=== PATIENT | female | born 1965 | race African-American/Black ===

== ENCOUNTER 2020-01-15 00:18 | Outpatient (CLI) | payer OTHER, SELFPAY ==
[2020-01-15 19:29] LABS: SARS-CoV-2 RNA PCR Negative
== END 2020-01-15 00:19 | disposition home or self-care (01) ==
LOC: ANHCOVIDDT 00:19
PROVIDERS: PCP Family Medicine Sports Medicine; Visit Provider Internal Medicine Gastroenterology
DX: Z01.812 Encounter for preprocedural laboratory examination (principal); Z20.828 Contact with and (suspected) exposure to other viral communicable diseases
CPT/HCPCS: 87635; C9803; U0003

== ENCOUNTER 2020-01-18 01:07 | Day surgery (SDC) | payer OTHER, SELFPAY ==
[2020-01-06 13:23] VITALS: BMI 32.8
[2020-01-18 07:15] VITALS: BP 133/80; PULSE 66; RESP 20; TEMP 36; O2SAT 100
[2020-01-18] MEDS: LACTATED RINGERS 1,000 ML 150 ML IV CONT (07:26)
--- NOTE | 2020-01-18 07:49 | P.PNAN_ITS ---
Anes - Initial Pre Proc Eval Procedure: Operation Date: 01/18/20 08:30 Proposed Procedures p Screening Colonoscopy - Tristin Perez MD Date/Time: 01/18/20 07:49 Surgeon: Tristin Perez MD Pre Op Diagnosis: neoplasm screening Patient Data Age: 54 Gender: F Height: 5 ft 7 in Weight: 92.2 kg Last Vital Signs Temp 96.8 F L 01/18/20 07:15 Pulse 66 01/18/20 07:15 Resp 20 01/18/20 07:15 BP 133/80 01/18/20 07:15 Pulse Ox 100 01/18/20 07:15 Allergies Allergy/AdvReac Type Severity Reaction Status Date / Time No Known Allergies Allergy Verified 01/18/20 07:14 Home Medications Medication Instructions Recorded Confirmed Type ferrous sulfate [Iron (ferrous 325 mg PO DAILY 01/06/20 01/06/20 History sulfate)] [id number]-epa-fish oil [[place]-3 1 cap PO DAILY 01/06/20 01/06/20 History Fish Oil] Patient hx anesthesia problems: none Family hx anesthesia problems: none PMF Past Medical History Medical History (Updated 01/18/20 @ 07:49 by Yariel Cam MD) Hypertension Anes - Eval Final PreProcedure Day of Procedure 01/18/20 07:49 Patient weight: overweight Heart: regular rate and rhythm Lungs: clear to auscultation Airway: Mallampati scale class II Neurological: alert and oriented Last oral intake: >/= 8 hours ASA classification: II Emergent: no Anesthetic plan: proceed Anesthesia type and monitoring: general GIVS and standard monitoring Informed Consent: The patient's anesthetic plan and its attendant risks and benefits were discussed with the patient/family/POA. Questions were solicited and answers provided to the satisfaction of the patient/family/POA.
--- NOTE | 2020-01-18 08:16 | PM.HPGS ---
History of Present Illness History of Present Illness Consent: Risks, benefits, and alternatives have been discussed and questions answered. Patient agrees to proceed with procedure. Chief complaint: neoplasm screening Narrative: Hawa Chandler is a 54 year old female here for her first screening colonoscopy Review of Systems Constitutional: Constitutional: Denies headache(s) and Denies weakness Eyes: Eyes: Denies blurry vision ENT: Reports Normal hearing present, Denies headache(s) and Denies neck pain Cardiovascular: Cardiovascular: Denies chest pain and Denies dyspnea Respiratory: Respiratory: Denies dyspnea Gastrointestinal: Gastrointestinal: Reports no additional gastrointestinal complaints Genitourinary: Genitourinary: Denies dysuria Musculoskeletal: Musculoskeletal: Denies neck pain Integumentary/Breasts: Skin/Breast: Denies dry skin Neurologic: Reports Normal hearing present, Denies headache(s) and Denies weakness Psychiatric: Psychiatric: Denies anxiety Endocrine: Endocrine: Denies change in body appearance Hematologic/Lymphatic: Hematologic/Lymphatic: Denies easy bleeding Allergic/Immunologic: Allergic/Immunologic: Denies urticaria [facility] Past Medical History Medical History (Updated 01/18/20 @ 08:18 by Tristin Perez MD) Colon cancer screening Hypertension Meds Home Medications and Allergies Home Medications Medication Instructions Recorded Confirmed Type ferrous sulfate [Iron (ferrous 325 mg PO DAILY 01/06/20 01/06/20 History sulfate)] [id number]-[id number]-epa-fish oil [[place]-3 1 cap PO DAILY 01/06/20 01/06/20 History Fish Oil] Allergies Allergy/AdvReac Type Severity Reaction Status Date / Time No Known Allergies Allergy Verified 01/18/20 07:14 Vital Signs Vital Signs - 24 hr 01/18/20 07:15 Temperature 96.8 F L Pulse Rate 66 Respiratory Rate 20 Blood Pressure 133/80 Pulse Oximetry 100 Exam Const: General: comfortable and no acute distress HENMT: General nose exam: Normal nares present Eyes: General: appearance normal, both eyes and all related structures Neck: Neck: no JVD Resp: Auscultation: clear to auscultation bilaterally Cardio: Rate: regular rate Rhythm: regular rhythm GI: Inspection: non-distended GI Palp: Yes Soft to palpation Skin: General skin exam: normal color Neuro: General: gait normal Speech: normal speech Extrem: General: normal to inspection Psych: Mental Status: mental status grossly normal Assessment and Plan Assessment and plan (1) Colon cancer screening: Code(s): Z12.11 - Encounter for screening for malignant neoplasm of colon Status: Acute Assessment and Plan: will proceed with colonoscopy (2) Hypertension: Code(s): I10 - Essential (primary) hypertension Status: Acute
[2020-01-18 08:35] VITALS: BP 97/60; PULSE 70; RESP 16; O2SAT 97
[2020-01-18 08:45] VITALS: BP 112/65; PULSE 64; RESP 16; O2SAT 100
[2020-01-18 08:55] VITALS: BP 133/83; PULSE 75; RESP 16; O2SAT 100
== END 2020-01-18 09:24 | disposition home or self-care (01) ==
PROVIDERS: PCP Family Medicine Sports Medicine; Visit Provider Internal Medicine Gastroenterology
PROC: 0DJD8ZZ Inspection of Lower Intestinal Tract, Via Natural or Artificial Opening Endoscopic (ICD-10-PCS; CPT 45378; principal; 2020-01-18 08:30)
DX: Z12.11 Encounter for screening for malignant neoplasm of colon (principal); I10 Essential (primary) hypertension
CPT/HCPCS: 45378; J2704; J7120

== ENCOUNTER 2020-02-07 10:38 | Outpatient (CLI) | payer OTHER, SELFPAY ==
--- NOTE | ~2020-02-07 | MM_ITS ---
EXAMINATION: MM screening petty BI w bhupendra HISTORY: Screening mammogram TECHNIQUE: Craniocaudal and mediolateral oblique 3-D tomosynthesis images were obtained and synthetic 2-D images were generated. CAD analysis was submitted and interpreted. COMPARISON: 03/22/2014, 12/09/2012 bilateral digital screening mammogram examinations BREAST PARENCHYMAL COMPOSITION: There are scattered areas of fibroglandular density.. FINDINGS: There is no evidence of suspicious mass, calcification, or architectural distortion to sugg est malignancy in either breast. There has been no suspicious interval change. IMPRESSION: 1. No mammographic evidence of malignancy. 2. Recommend routine screening mammography in one year. BI-RADS Category 1: Negative Reviewed, dictated and finalized at location A.
== END 2020-02-07 10:39 | disposition home or self-care (01) ==
LOC: ANHIMG 10:40
PROVIDERS: PCP Family Medicine Sports Medicine; Visit Provider Family Medicine Sports Medicine
DX: Z12.31 Encounter for screening mammogram for malignant neoplasm of breast (principal)
CPT/HCPCS: 77063; 77067

== ENCOUNTER 2022-08-06 12:51 | Outpatient (CLI) | payer OTHER, SELFPAY ==
--- NOTE | 2022-08-06 13:04 | ECG_ITS ---
Measurements Intervals [place] Rate: 85 P: 51 [place]: 146 QRS: -20 QRSD: 90 T: -8 QT: 339 QTc: 404 Interpretive Statements SINUS RHYTHM DELAYED PRECORDIAL R/S TRANSITION LEFT VENTRICULAR HYPERTROPHY BORDERLINE ST-T WAVE ABNORMALITY- ANT/INF LEADS BASELINE ARTIFACT- I, II, AVR BORDERLINE ECG NO PREVIOUS ECG AVAILABLE FOR COMPARISON Electronically Signed On 08-06-2022 13:24:16 CDT by Jeffry Adair D.O.
[2022-08-06 13:41] LABS: Basophils Absolute Auto 0.1 K/mm3 (0.0-0.1); Basophils Percent Auto 0.8 % (0.2-1.2); Eosinophils Absolute Auto 0.1 K/mm3 (0-0.3); Hematocrit 44.6 % (37.0-47.0); Immature Granulocyte Absolute 0.02 K/mm3 (0.00-0.031); Immature Granulocyte Percent A 0.3 % (0-0.5); Lymphocytes Absolute Auto 2.04 K/mm3 (0.9-3.2); Lymphocytes Percent Auto 34.1 % (18.3-44.2); Mean Corpuscular HGB Conc 31.4 g/dl (32-36); Mean Corpuscular Hemoglobin 27.9 pg (26-34); Mean Corpuscular Volume 88.8 fl (80-100); Mean Platelet Volume 9.7 fl (7.4-10.4); Monocytes Absolute Auto 0.3 K/mm3 (0.1-0.6); Monocytes Percent Auto 5.3 % (2.6-8.5); Neutrophils Absolute Auto 3.4 K/mm3 (1.3-6.7); Neutrophils Percent Auto 57.5 % (45.5-73.1); Platelet Count Result 295 k/mm3 (150-375); Red Blood Count 5.02 M/mm3 (4.2-5.4); Red Cell Distribution Width 13.6 % (11.5-14.5)
[2022-08-06 13:54] LABS: Alanine Aminotransferase 21 U/L (6-35); Albumin Level 4.3 g/dL (3.5-5.1); Alkaline Phosphatase 60 U/L (38-126); Anion Gap 3 mmol/L (8-16); Aspartate Amino Transferase 21 U/L (14-36); Bilirubin,Total 0.4 mg/dL (0.2-1.3); Blood Urea Nitrogen 11 mg/dL (7-17); Calcium 9.2 mg/dL (8.4-10.2); Carbon Dioxide 31 mmol/L (22-30); Chloride 104 mmol/L (98-107); Estimated Glomerular Filt Rate > 60; Glucose 119 mg/dL (65-110); Potassium 3.9 mmol/L (3.4-5.0); Sodium 138 mmol/L (137-145)
== END 2022-08-06 12:52 | disposition home or self-care (01) ==
LOC: ANHSURGERY 12:58
PROVIDERS: PCP Family Medicine Sports Medicine; Visit Provider Obstetrics & Gynecology
DX: Z78.0 Asymptomatic menopausal state (principal); D25.9 Leiomyoma of uterus, unspecified; I10 Essential (primary) hypertension; Z01.818 Encounter for other preprocedural examination
CPT/HCPCS: 36415; 80053; 85025; 86850; 86900; 86901; 93005

== ENCOUNTER 2022-08-07 00:36 | Day surgery (SDC) | payer OTHER, SELFPAY ==
[2022-07-29 10:09] VITALS: BMI 31.1
--- NOTE | 2022-07-29 10:22 | PC.NURSE ---
Addendum entered by Pat Sandoval RN 07/29/22 13:28: FOLLOW DR. HOLLINS'S INSTRUCTIONS REGARDING ASPIRIN. Original Note: Report to the Outpatient Waiting Room, entrance under the green pavilion located off [facility], at time 9:00 on date 08/07/22. Planned Procedure Time: 11:00. Time changes happen often and if your time is changed the preop area will call you the afternoon before. - You and your visitor will be asked to self-screen and do not enter if you have any COVID symptoms. - Only one visitor is requested with a max of two and NO children visitors are allowed at this time. - The patient visitor may be requested to leave or wait in car when not with patient due to distancing restrictions. - A mask is optional within the hospital at this time. Patients may have clear liquids (water, carbonated beverages, clear teas, apple juice) until 3 hours prior to surgery (8:00) with a maximum of 20 ounces. - No food from midnight until time of surgery Take the following medications with a SIP of water the morning of surgery: AMLODIPINE DO NOT STOP ANY OF YOUR OTHER PRESCRIPTION MEDICATIONS PRIOR TO SURGERY EXCEPT THE FOLLOWING Medications to discontinue per physician: VITAMINS/SUPPLEMENTS Date to take last dose: 08/03/22 Please no make-up, nail citizen of [place], hairspray, perfume, deodorant, or body powder the day of surgery. No jewelry (including any body piercings) or valuables the day of surgery, leave them at home. Please take a shower or bath the night before, or the morning of, surgery with an antibacterial soap. Wear comfortable, loose fitting clothing. - Jewelry must be removed prior to entering the operating room. Rings and piercings that are not removed may be cut off. - The hospital will not accept responsibility for valuables. - Please leave all valuables, including medications, at home the day of surgery. If you are going home after surgery, a licensed warehouse driver must drive you home. - NO public transportation without another adult if you receive anesthesia. - We recommend that an adult stay with you for 24 hours following discharge. - We also recommend that you do not drive, make important decision, drink alcoholic beverages, or take any drugs that were not prescribed by your health care provider for at least 24 hours after your discharge time. Follow any additional instructions given to you from your surgeon. If you or anyone in your household have experienced Covid symptoms in the past week, please notify your surgeon or the nurse liaison at the phone number below for possible testing. Telephone instructions given to LUISA KYLE and asked if any additional questions and then verbalized understanding. Patient advised to call surgeon office or pre surgery nurse liaison [phone] if any additional questions.
[2022-08-07] VITALS (12 sets, daily range): BP systolic 94–145; BP diastolic 53–74; PULSE 59–88; RESP 12–21; TEMP 36.2–37.3; O2SAT 93–98
[2022-08-07] MEDS: KETOROLAC 15 MG/ML VIAL (*BKC) IV PUSH (09:21)
[2022-08-07] MEDS: ACETAMINOPHEN 500 MG TABLET 1000 MG PO (09:21)
[2022-08-07] MEDS: LACTATED RINGERS 1,000 ML 30 ML IV CONT ×2 (09:38→13:24)
[2022-08-07 09:41] LABS: Glucose Point of Care 98 mg/dl (65-105)
--- NOTE | 2022-08-07 09:48 | WPDANESEPPF ---
Anes - Initial Pre Proc Eval Procedure: Operation Date: 08/07/22 11:00 Proposed Procedures p Total Laparoscopic Hysterectomy, Bilateral Salpingectomy - Raisa Botello MD Date/Time: 08/07/22 09:48 Surgeon: Raisa Botello MD Pre Op Diagnosis: uterine leiomyoma Patient Data Age: 57 Gender: F Height: 1.71 m Weight: 91.63 kg Allergies Allergy/AdvReac Type Severity Reaction Status Date / Time No Known Allergies Allergy Verified 08/07/22 09:47 Home Medications Medication Instructions Recorded Confirmed Type omega-3s 300 ys-yqq-mgi-other 1 cap PO DAILY 01/06/20 07/29/22 History julrx1i-lfdi oil 1,000 mg capsule ([place]-3 Fish Oil) amlodipine 5 mg tablet 5 mg PO DAILY 07/29/22 07/29/22 History aspirin 81 mg chewable tablet 81 mg PO DAILY 07/29/22 07/29/22 History meloxicam 15 mg tablet 15 mg PO DAILY 07/29/22 07/29/22 History metformin 500 mg tablet 1,000 mg PO BID 07/29/22 07/29/22 History terbinafine HCl 250 mg tablet 250 mg PO DAILY 07/29/22 07/29/22 History vitamin C 500 mg-multivitamin with 1 tablet PO BID 07/29/22 07/29/22 History minerals chewable tablet (Emergen-C) Laboratory Tests 08/07/22 09:29 POC Capillary Glucose 98 mg/dl mg/dl (65-105) Patient hx anesthesia problems: none Family hx anesthesia problems: none Results Review: All pre-operative results and documents have been reviewed as part of the pre-operative evaluation. [facility] Past Medical History Medical History Colon cancer screening Hypertension Social History Social History Smoking status: Never smoker Alcohol intake: never Substance use: never Substance use type: does not use Living arrangements: with family Spiritual care concerns: No Anes - Eval Final PreProcedure Day of Procedure 08/07/22 09:48 Patient weight: obese Heart: regular rate and rhythm Lungs: clear to auscultation Airway: Mallampati scale class II Neurological: alert and oriented Last oral intake: >/= 8 hours ASA classification: III Emergent: no Anesthetic plan: proceed Anesthesia type and monitoring: general ETT and standard monitoring Results Review: All pre-operative results and documents have been reviewed as part of the pre-operative evaluation. Informed Consent: The patient's anesthetic plan and its attendant risks and benefits were discussed with the patient/family/POA. Questions were solicited and answers provided to the satisfaction of the patient/family/POA.
--- NOTE | 2022-08-07 10:30 | WPDHPUPDATE1 ---
History and Physical Update Update Date/Time: 08/07/22 10:30 History and Physical has been reviewed, including an updated exam of the patient. There are NO changes in the patient's condition. Risks, benefits, and alternatives have been discussed and questions answered. Patient agrees to proceed with procedure.
[2022-08-07] MEDS: ceFAZolin 2 GM/D5W 50 ML 2 GM/50 ML BAG IVPB (11:05)
[2022-08-07] MEDS: ceFAZolin SODIUM 1 GM VIAL (11:43)
--- NOTE | 2022-08-07 13:39 | P.OP_ITS ---
Procedure Note - Detailed Date of Procedure 08/07/22 Pre-op Diagnosis uterine leiomyoma Post-op Diagnosis Same Procedure Performed Total laparoscopic hysterectomy. bilateral salpingectomy Surgeon Raisa Botello MD Anesthesia General Findings enlarged fibroid uterus. , normal-appearing ovaries and tubes. Description of Procedure This patient was taken to the operating room. She was prepped and draped in the dorsal lithotomy position after induction of general anesthesia. The uterine manipulator and Drea cup were placed. This was done with a speculum and tenaculum. The speculum was placed. The cervix was grasped with a tenaculum. The stay sutures were placed at 3 and 9:00 a.m.. The stay sutures of 0 Vicryl were brought through the appropriately sized Drea cup. The tip of the JACQUELINE manipulator was placed in the intrauterine cavity. The cup was slid into place around the cervix and into the fornices. It was locked into place. The sutures were then wrapped around the handle and tied under tension. A 5 mm skin incision was made in the left upper quadrant the abdomen. A 5 mm trocar was inserted into the intrauterine cavity under direct visualization of the scope. Pneumoperitoneum was achieved. A left lower quadrant 11 mm incision was made with scalpel. An 11 mm trocar was inserted into the anterior abdominal cavity under direct visualization the scope. A 5 mm infraumbilical incision was made with a scalpel and a 5 mm trocar was inserted the intra-abdominal cavity under direct visualization of the scope. Bilateral ureteral lysis was performed. This was done from the pelvic brim down to the uterine artery. This was done with careful dissection using sharp and blunt dissection. The fallopian tubes were removed bilaterally. The mesosalpinx around the fallopian tubes were cauterized transected with LigaSure cautery. This was done in a bilateral fashion from the ovary to the uterine cornua. The fallopian tube was transected at the uterine cornu and amputated. The tube was taken out the left lower quadrant trocar site. In a stepwise fashion along the lateral aspects of the uterus the round ligament and broad ligaments were cauterized transected down to the level of the uterine arteries. A bladder flap was created in the bladder was moved distally to the end of the cervix and over the Drea cup. The bilateral uterine arteries were cauterized and transected. Colpotomy was then performed. In a circumferential fashion the vagina was transected using unipolar cautery. The incision was made down on the Drea cup. The uterus and cervix were taken out through the vagina. A pneumo occluder was placed in the vagina. The vaginal cuff was closed with a 0 V lock suture in a running fashion. The pelvis was irrigated with copious amounts antibiotic irrigation. The ureters were again examined and found to be intact and flowing freely under the uterine arteries into the bladder. The bladder was intact. It was examined directly. The vagina was irrigated with Betadine solution after removal of the Pneumo occ luder. The patient was taken to recovery room. She was stable condition. Sponge lap and needle counts were correct x2. Estimated Blood Loss -150.0 Urine Output -250.0 Drains Yes Packing No Pathology Yes Complications No immediate complications Condition Stable Disposition Floor
[2022-08-07 13:53] LABS: Glucose Point of Care 164 mg/dl (65-105)
[2022-08-07] MEDS: KETOROLAC 30 MG/ML VIAL (*BKC) IV PUSH (15:45)
[2022-08-07] MEDS: DEXTROSE 5%/0.45% SOD CHL 1,000 ML 125 ML IV CONT (15:45)
[2022-08-07] MEDS: HYDROcodone/acetaminophen (*CRX) 5-325 MG TABLET 1 TAB PO (18:37)
[2022-08-07] MEDS: metFORMIN HCL 500 MG TABLET 1000 MG PO (18:37)
[2022-08-07] MEDS: HYDROcodone/acetaminophen (*CRX) 10-325 MG TABLET 1 TAB PO (22:52)
[2022-08-07] MEDS: SIMETHICONE 80 MG TAB.CHEW PO (23:02)
[2022-08-08 04:40] VITALS: BP 127/74; PULSE 78; RESP 16; TEMP 37.1; O2SAT 97
[2022-08-08 07:25] VITALS: BP 138/66; PULSE 76; RESP 16; TEMP 37.4; O2SAT 98
[2022-08-08] MEDS: IBUPROFEN 600 MG TABLET PO (07:37)
[2022-08-08] MEDS: HYDROcodone/acetaminophen (*CRX) 10-325 MG TABLET 1 TAB PO (07:37)
--- NOTE | 2022-08-08 08:10 | PM.GYNPNOP ---
PHOTOGRAPH MOUNTER - A/P Postoperative Procedures: Procedures Operation Date: 08/07/22 11:00 Actual Procedure Side Surgeon p Total Laparoscopic Hysterectomy, Bilateral Salpingectomy Bilateral Raisa Botello MD Postoperative day: 1 Postoperative status: doing well Postoperative plan: see orders Time Spent With Patient Time: Total time spent is greater than 50% in coordination of care (as documented) at patient's floor/unit and/or counseling patient: Time with patient: less than 15 minutes PHOTOGRAPH MOUNTER- PN:Subj Post-Op Subjective Date/time seen: 08/08/22 08:10 Subjective: patient reports feeling better, patient has no complaints and pain is well controlled Exam Const: General: healthy appearing, comfortable and no acute distress Resp: Auscultation: clear to auscultation bilaterally, no rales, no rhonchi and no wheezes Cardio: Rate: regular rate Heart sounds: no click, no murmurs and no rubs GI: Inspection: non-distended Auscultation: normal bowel sounds Extrem: General: normal to inspection, no pedal edema and no calf tenderness PHOTOGRAPH MOUNTER - PN: Obj Data Vital Signs Vital Signs: Vital Signs - 24 hr 08/07/22 09:30 08/07/22 13:24 08/07/22 13:30 Temperature 97.1 F L 98.1 F Pulse Rate 76 61 61 Respiratory Rate 16 19 12 Blood Pressure 143/73 H 94/56 L 104/57 L Pulse Oximetry 97 95 98 Oxygen Delivery Room Air Simple Face Mask Simple Face Mask Oxygen Flow Rate 10 10 08/07/22 13:45 08/07/22 14:00 08/07/22 14:15 Temperature Pulse Rate 59 L 61 63 Respiratory Rate 20 19 21 H Blood Pressure 99/54 L 102/53 L 105/58 L Pulse Oximetry 96 95 98 Oxygen Delivery Simple Face Mask Simple Face Mask Room Air Oxygen Flow Rate 10 10 08/07/22 14:30 08/07/22 14:45 08/07/22 14:05 Temperature 97.7 F Pulse Rate 65 65 66 Respiratory Rate 19 17 16 Blood Pressure 106/57 L 113/55 L 110/57 L Pulse Oximetry 93 96 98 Oxygen Delivery Room Air Room Air Oxygen Flow Rate 08/07/22 15:45 08/07/22 21:20 08/07/22 23:03 Temperature 99.1 F 98.8 F Pulse Rate 65 88 84 Respiratory Rate 17 18 18 Blood Pressure 145/74 H 140/69 Pulse Oximetry 96 96 98 Oxygen Delivery Room Air Oxygen Flow Rate 08/08/22 04:40 08/08/22 04:40 Temperature 98.7 F Pulse Rate 78 Respiratory Rate 16 Blood Pressure 127/74 Pulse Oximetry 97 Oxygen Delivery Room Air Oxygen Flow Rate Intake/Output Intake/Output: Intake & Output 08/05/22 08/06/22 08/07/22 08/08/22 23:59 23:59 23:59 23:59 Intake Total 750 Output Total 850 Balance -100 Meds/Results Medications: Active Medications Generic Name Dose Route Start Last Admin Trade Name Freq PRN Reason Stop Dose Admin Hydrocodone Bitart/Acetaminophen 1 tab 08/07/22 14:52 08/07/22 18:37 Hydrocodone/Acetaminophen (*Crx) 5-325 Mg Tablet PO 1 tab Q3H PRN Administration Pain Rated 5 or Less Hydrocodone Bitart/Acetaminophen 1 tab 08/07/22 14:52 08/08/22 07:37 Hydrocodone/Acetaminophen (*Crx) 10-325 Mg Tablet PO 1 tab Q3H PRN Administration Pain Rated 6 or Greater Amlodipine Besylate 5 mg 08/08/22 09:00 Amlodipine Besylate 5 Mg Tablet PO DAILY KARIME Aspirin 81 mg 08/08/22 09:00 Aspirin 81 Mg Chewable Tablet PO DAILY KARIME Dextrose/Sodium Chloride 1,000 mls @ 125 mls/hr 08/07/22 14:52 08/08/22 06:39 Dextrose 5% Sodium Chloride 0.45% IV CONT Not Given .Q8H KARIME Ibuprofen 600 mg 08/07/22 14:52 08/08/22 07:37 Ibuprofen 600 Mg Tablet PO 600 mg Q6H PRN Administration Cramping Ketorolac Tromethamine 30 mg 08/07/22 14:52 08/07/22 15:45 Ketorolac 30 Mg/Ml Vial (*Bkc) IV PUSH 08/12/22 14:51 30 mg Q6H PRN Administration Pain Rated 4-6 Metformin HCl 1,000 mg 08/07/22 17:00 08/07/22 18:37 Metformin Hcl 500 Mg Tablet PO 1,000 mg BID KARIME Administration Naloxone HCl 0.1 mg 08/07/22 14:52 Naloxone Hcl 0.4 Mg/Ml Vial IV PUSH Q2M PRN Respiratory rate less than 10 Non-Formu
[2022-08-08] MEDS: amLODIPine BESYLATE 5 MG TABLET PO (08:32)
[2022-08-08] MEDS: SIMETHICONE 80 MG TAB.CHEW PO (08:32)
[2022-08-08] MEDS: metFORMIN HCL 500 MG TABLET 1000 MG PO (08:32)
[2022-08-08] MEDS: TERBINAFINE HCL 250 MG TABLET PO (08:33)
[2022-08-08] MEDS: ASPIRIN 81 MG CHEWABLE TABLET PO (08:33)
--- NOTE | 2022-08-08 09:24 | WPDANESPN ---
Anes - Prog Note Post-Op Date/Time: 08/08/22 09:24 Cardiovascular status: normal Respiratory status: normal Airway patency: baseline Mental status: baseline Post-Op hydration status: normal Vital Signs: Last Vital Signs Temp 99.4 F 08/08/22 07:25 Pulse 76 08/08/22 07:25 Resp 16 08/08/22 07:25 BP 138/66 08/08/22 07:25 Pulse Ox 98 08/08/22 07:25 O2 Del Method Room Air 08/08/22 07:45 O2 Flow Rate 10 08/07/22 14:00 Pain Score (VAS): 0 I/O: Intake & Output 08/07/22 08/08/22 08/08/22 23:59 07:59 15:59 Intake Total 500 Output Total 850 Balance -350 08/07/22 08/07/22 09:29 13:35 POC Capillary Glucose 98 164 H Post-procedural complaints: none Patient Feedback: Patient satisfied with anesthetic care.
== END 2022-08-08 10:50 | disposition home or self-care (01) ==
LOC: ANHSURGERY 08:47 → ANHOB2 14:57
PROVIDERS: PCP Family Medicine Sports Medicine; Visit Provider Obstetrics & Gynecology
PROC: 0UT9FZZ Resection of Uterus, Via Natural or Artificial Opening With Percutaneous Endoscopic Assistance (ICD-10-PCS; CPT 58571; principal; 2022-08-07 11:00)
DX: D25.0 Submucous leiomyoma of uterus (principal); D25.1 Intramural leiomyoma of uterus; D25.2 Subserosal leiomyoma of uterus; I10 Essential (primary) hypertension; E66.9 Obesity, unspecified; Z68.31 Body mass index [BMI] 31.0-31.9, adult; Z79.84 Long term (current) use of oral hypoglycemic drugs; Z79.82 Long term (current) use of aspirin
CPT/HCPCS: 58571; 82948; 88307; 99199; A9270; J0690; J1100; J1170; J1885; J2250; J2405; J2704; J3010; J7120

== ENCOUNTER 2024-08-26 10:22 | Outpatient (CLI) | payer OTHER, SELFPAY ==
--- NOTE | ~2024-08-26 | MM_ITS ---
EXAMINATION: MM screening petty BI w bhupendra HISTORY: Screening TECHNIQUE: Craniocaudal and mediolateral oblique 3-D tomosynthesis images were obtained and synthetic 2-D images were generated. CAD analysis was submitted and interpreted. COMPARISON: Comparison to multiple prior studies sequentially, with oldest reviewed study dated 02/24. BREAST PARENCHYMAL COMPOSITION: Not dense: There are scattered areas of fibroglandular density. FINDINGS: There is a new focal asymmetry lower central aspect of the right breast, middle third. The left breast is stable without evidence for malignancy. IMPRESSION: 1. New right breast asymmetry. 2. Additional mammographic views and possible breast ultrasound are recommended. BI-RADS Category 0: Incomplete: Needs additional imaging evaluation. Reviewed, dictated and finalized at location A. IMPRESSION: 1. New right breast asymmetry. 2. Additional mammographic views and possible breast ultrasound are recommended . BI-RADS Category 0: Incomplete: Needs additional imaging evaluation.
--- OUTSIDE RECORDS SUMMARY | 2024-08-26 11:11 | XMS_ITS | Data Portability ---
Author Organization [facility] [place] Address [address] [place] [address] Care Team Providers Care Pre Owned Sales Consultant Name Role Phone ODESSA DUDLEY Referring Provider ODESSA DUDLEY Primary Care Provider [phone] Assessment No assessment recorded. Plan of Treatment Reminders Order Date Submit Date Provider Last Modified By Organization Details Last Modified Time Details Appointments None recorded. Lab HbA1c (hemoglob in A1c), blood 023 023 [facility] (Lab), [address], [place], [address], 3 06:08:21 lipid panel, blood 023 023 [facility] (Lab), [address], [place], [address], 3 06:08:18 vitamin D, 25-hydrox y, total, serum 023 023 [facility] (Lab), [address], [place], [address], 3 06:08:21 CMP, serum or plasma 023 023 [facility] (Lab), [address], [place], [address], 3 06:08:19 CBC w/ auto diff 023 023 [facility] (Lab), [address], [place], [address], 3 06:08:17 TSH, serum or plasma 023 023 [facility] (Lab), [address] , [place], [address], 3 06:08:20 Referral None recorded. Procedures None recorded. Surgeries None recorded. Imaging None recorded. Medication Orders None recorded. Patient TargetsNo targets recorded. Patient InstructionsNo instructions recorded. Reason for Referral None Reported. Results Created Date Observation Date Name Description Value Unit Range Abnormal Flag Note LastModifiedBy Organization Detail LastModifiedTime 09/21/1909/20/2022 CBC W/DIF F WBC 6.3 10'3/ uL 3.6-10 .2 Not Available [facility] (Lab) [address], [place], [address], 09/21/2022 06:08:16 09/21/19 23 09/20/2022 CBC W/DIF F RBC 5.07 10'6/ uL (based on docume nted legal sex) 4.10-5 .30 Not Available [facility] (Lab) [address], [place], [address], 09/21/2022 06:08:16 09/21/19 23 09/20/2022 CBC W/DIF F HGB 13.8 g/dL (based on docume nted legal sex) 11.9-1 5.8 Not Available [facility] (Lab) [address], [place], [address], 09/21/2022 06:08:16 09/21/19 23 09/20/2022 CBC W/DIF F HCT 45.3 % (based on docume nted legal sex) 37.4-4 8.3 Not Available [facility] (Lab) [address], [place], [address], 09/21/2022 06:08:16 09/21/19 23 09/20/2022 CBC W/DIF F MCV 89.3 fL 82.0-9 9.0 Not Available [facility] (Lab) [address], [place], [address], 09/21/2022 06:08:16 09/21/19 23 09/20/2022 CBC W/DIF F MCH 27.2 pg 27.0-3 3.0 Not Available [facility] (Lab) [address], [place], [address], 09/21/2022 06:08:16 09/21/19 23 09/20/2022 CBC W/DIF F MCHC 30.5 g/dL 32.0-3 6.0 low Not Available [facility] (Lab) [address], [place], [address], 09/21/2022 06:08:16 09/21/19 23 09/20/2022 CBC W/DIF F RDW 14.2 % 11.0-1 5.0 Not Available [facility] (Lab) [address], [place], [address], 09/21/2022 06:08:16 09/21/19 23 09/20/2022 CBC W/DIF F plt 345 10'3/ uL 150-45 0 Not Available [facility] (Lab) [address], [place], [address], 09/21/2022 06:08:16 09/21/19 23 09/20/2022 CBC W/DIF F MPV 10.4 fL 9.8-12 .7 Not Available [facility] (Lab) [address], [place], [address], 09/21/2022 06:08:16 09/21/19 23 09/20/2022 CBC W/DIF F NRBC's 0.0 % 0 Not Available [facility] (Lab) [address], [place], [address], 09/21/2022 06:08:16 09/21/19 23 09/20/2022 CBC W/DIF F absolute NRBCs 0.0 10'3/ uL 0 Not Available [facility] (Lab) [address], [place], [address], 09/21/2022 06:08:16 09/21/19 23 09/20/2022 CBC W/DIF F neutrophils 48.0 % 37.0-7 2.0 Not Available [facility] (Lab) [address], [place], [address], 09/21/2022 06:08:16 09/21/19 23 09/20/2022 CBC W/DIF F lymphocytes 41.6 % 16.0-4 8.0 Not Available [facility] (Lab) [address], [place], [address], 09/21/2022 06:08:16 09/21/19 23 09/20/2022 CBC W/DIF F monocytes 6.7 % 4.0-14 .0 Not Available [facility] (Lab) [address], [place], [address], 09/21/2022 06:08:16 09/21/19 23 09/20/2022 CBC W/DIF F eosinophils 2.4 % 0.0-9. 0 Not Available [facility] (Lab) [address], [place], [address], 09/21/2022 06:08:16 09/21/19 23 09/20/2022 CBC W/DIF F basophils 1.0 % 0.0-2. 0 Not Available [facility] (Lab) [address], [place], [address], 09/21/2022 06:08:16 09/21/19 23 09/20/2022 CBC W/DIF F immature granulocytes 0.3 % no define d refere nce range Not Available [facility] (Lab) [address], [place], [address], 09/21/2022 06:08:16 09/21/19 23 09/20/2022 CBC W/DIF F absolute neutrophils 3.0 10'3/ uL 1.1-6. 0 Not Available [facility] (Lab) [address] [facility], [place], [address], 09/21/2022 06:08:16 09/21/19 23 09/20/2022 CBC W/DIF F absolute lymphocytes 2.6 10'3/ uL 0.7-3. 4 Not Available [facility] (Lab) [address] [facility], [place], [address], 09/21/2022 06:08:16 09/21/19 23 09/20/2022 CBC W/DIF F absolute monocytes 0.4 10'3/ uL 0.3-1. 0 Not Available [facility] (Lab) [address] [facility], [place], [address], 09/21/2022 06:08:16 09/21/19 23 09/20/2022 CBC W/DIF F absolute eosinophils 0.2 10'3/ uL 0.0-0. 6 Not Available [facility] (Lab) [address] [facility], [place], [address], 09/21/2022 06:08:16 09/21/19 23 09/20/2022 CBC W/DIF F absolute basophils 0.1 10'3/ uL 0.0-0. 1 Not Available [facility] (Lab) [address] [facility], [place], [address], 09/21/2022 06:08:16 09/21/19 23 09/20/2022 CBC W/DIF F absolute immature granulocytes 0.0 10'3/ uL 0.00-0 .10 2022 4:05 AM: P indic ates parti al resul ts on a panel have been relea sed. Addit ional resul ts will follo w. 2022 4:05 AM: This resul t has been final verif ied. No addit ional or cooley ed resul ts are expec gia. Not Available [facility] (Lab) [address] [facility], [place], [address], 09/21/2022 06:08:16 09/21/19 23 09/20/2022 LIPID PANEL ,AMA (LDL- CALC) total cholesterol 223 mg/dL 0-199 high Not Available [facility] (Lab) [address] [facility], [place], [address], 09/21/2022 06:08:18 09/21/19 23 09/20/2022 LIPID PANEL ,AMA (LDL- CALC) triglyceride s 85 mg/dL 0.00-1 50.00 NCEP Refer ence Value s for Trigl yceri rudy: Brii l: <150 mg/dL Borde rline High: 150 - 199 mg/dL High: 200 - 499 mg/dL Very High: >/= 500 mg/dL Not Available [facility] (Lab) [address] [place], [address], 09/21/2022 06:08:18 09/21/1909/20/2022 LIPID PANEL ,AMA (LDL- CALC) HDL cholesterol 77 mg/dL >40 Not Available [facility] (Lab) [address] [place], [address], 09/21/2022 06:08:18 09/21/19 23 09/20/2022 LIPID PANEL ,AMA (LDL- CALC) LDL cholesterol 128 mg/dL 0-99 high Cutof f value s recom ana maria d by the Natcarole nal Kamala stero l Educa tion Progr am: SPENCER ABLE: Kamala stero l <200 mg/dL LDL <100 mg/dL BORDE RLINE : Kamala stero l 200-2 39 mg/dL LDL 101-1 59 mg/dL HIGHE R RISK: Kamala stero l >240 mg/dL LDL >160 mg/dL , HDL <40 mg/dL Not Available [facility] (Lab) [address] [place], [address], 09/21/2022 06:08:18 09/21/1909/20/2022 LIPID PANEL ,AMA (LDL- CALC) non-HDL cholesterol 146 mg/dL no refere nce range A reaso nable goal for non-H DL kamala stero l is one that is 30 mg/dL highe r than the LDL kamala stero l goal. Not Available [facility] (Lab) [address], [place], [address], 09/21/2022 06:08:18 09/21/1909/20/2022 LIPID PANEL ,AMA (LDL- CALC) chol/HDL ratio 2.9 . 0.0-5. 0 On September 17, 2022, RUST labor atori rubens cooley ed the equat ion for calcu latin g estim ated low-d ensit y lipop rotei n-cho leste rol (LDL- C) from the Fried yamileth equat ion to the Ashley n/Hop kins equat ion. This new equat ion is only valid for lipid panel s with trigl yceri rudy < 400 mg/dL . Gweni es have alexon stratyrese ed that this new equat ion will impro ve the accur acy of LDL-C , espec ially in scena jones when LDL-C reva ntrat ions are relat ively low (< 100 mg/dL ), trigl yceri rudy are eleva gia, or patie nt is non-f astin g. Refer ences : - Ashley soriano, Charly Perez, Rafa Koehler , [facility] wicho BRajeev العلي, Jesse Llanes, Jesse villa, Ed Hardwick [facility] , and Foster Ocampo . 2013. Comp ariso n of a Novel Metho d vs the Fried yamileth Equat ion for Estim ating Low-D ensit y Lipop rotei n Kamala stero l Level s from the Stand marla Lipid Profi le. SHWETA: The Journ al of the Ameri can Medic al Assoc iatio n 310 (19): 2060- . - Cilf camejo V, Eilzabeth Ta, Los camejo A, Mary Ellen Gallego, Jose Carlos silverio R, Arnel Silverio, Ronen sanchez RS, Terrence SR, Ashley n SS. Fast ing Versu s Nonfa sting and Low-D ensit y Lipop rotei n Kamala stero l Accur acy. Circu latio n. 2017May 27;137 (1):1 0-19. Not Available [facility] (Lab) [address] [facility], [place], [address], 09/21/2022 06:08:18 09/21/19 23 09/20/2022 CMP(C OMPRE HENSI VE METAB OLIC PANEL ) sodium 141 mmol/ L 133-14 6 Not Available [facility] (Lab) [address] [facility], [place], [address], 09/21/2022 06:08:19 09/21/19 23 09/20/2022 CMP(C OMPRE HENSI VE METAB OLIC PANEL ) potassium 4.0 mmol/ L 3.5-5. 1 Not Available [facility] (Lab) [address] [facility], [place], [address], 09/21/2022 06:08:19 09/21/19 23 09/20/2022 CMP(C OMPRE HENSI VE METAB OLIC PANEL ) chloride 104 mmol/ L 98-107 Not Available [facility] (Lab) [address] [facility], [place], [address], 09/21/2022 06:08:19 09/21/19 23 09/20/2022 CMP(C OMPRE HENSI VE METAB OLIC PANEL ) carbon dioxide 29 mmol/ L 21-31 Not Available [facility] (Lab) [address] [facility], [place], [address], 09/21/2022 06:08:19 09/21/19 23 09/20/2022 CMP(C OMPRE HENSI VE METAB OLIC PANEL ) anion gap 8 mmol/ L 4-13 Not Available [facility] (Lab) [address] [place], [address], 09/21/2022 06:08:19 09/21/19 23 09/20/2022 CMP(C OMPRE HENSI VE METAB OLIC PANEL ) blood urea nitrogen 11 mg/dL 7-25 Not Available [facility] (Lab) [address], [place], [address], 09/21/2022 06:08:19 09/21/19 23 09/20/2022 CMP(C OMPRE HENSI VE METAB OLIC PANEL ) creatinine 0.65 mg/dL 0.60-1 .30 Not Available [facility] (Lab) [address], [place], [address], 09/21/2022 06:08:19 09/21/19 23 09/20/2022 CMP(C OMPRE HENSI VE METAB OLIC PANEL ) egfrcr (CKD-epi 2020) >90 mL/mi n/1.7 3_m2 >=60 Not Available [facility] (Lab) [address], [place], [address], 09/21/2022 06:08:19 09/21/19 23 09/20/2022 CMP(C OMPRE HENSI VE METAB OLIC PANEL ) calcium 9.5 mg/dL 8.3-10 .5 Not Available [facility] (Lab) [address], [place], [address], 09/21/2022 06:08:19 09/21/19 23 09/20/2022 CMP(C OMPRE HENSI VE METAB OLIC PANEL ) glucose 102 mg/dL 70-100 high Not Available [facility] (Lab) [address], [place], [address], 09/21/2022 06:08:19 09/21/19 23 09/20/2022 CMP(C OMPRE HENSI VE METAB OLIC PANEL ) protein, total 6.8 g/dL 6.4-8. 3 Not Available [facility] (Lab) [address], [place], [address], 09/21/2022 06:08:19 09/21/19 23 09/20/2022 CMP(C OMPRE HENSI VE METAB OLIC PANEL ) albumin 4.2 g/dL 3.5-5. 0 Not Available [facility] (Lab) [address], [place], [address], 09/21/2022 06:08:19 09/21/19 23 09/20/2022 CMP(C OMPRE HENSI VE METAB OLIC PANEL ) ALT 12 units /L 9-43 Not Available [facility] (Lab) [address], [place], [address], 09/21/2022 06:08:19 09/21/19 23 09/20/2022 CMP(C OMPRE HENSI VE METAB OLIC PANEL ) alkaline phosphatase 67 units /L 34-104 Not Available [facility] (Lab) [address], [place], [address], 09/21/2022 06:08:19 09/21/19 23 09/20/2022 CMP(C OMPRE HENSI VE METAB OLIC PANEL ) AST 13 units /L 13-39 Not Available [facility] (Lab) [address], [place], [address], 09/21/2022 06:08:19 09/21/19 23 09/20/2022 CMP(C OMPRE HENSI VE METAB OLIC PANEL ) bilirubin, total 0.3 mg/dL 0.2-1. 2 Not Available [facility] (Lab) [address], [place], [address], 09/21/2022 06:08:19 09/21/19 23 09/20/2022 TSH, REFLE X FREE T4 TSH 2.34 uIU/m L 0.30-5 .33 Not Available [facility] (Lab) [address], [place], [address], 09/21/2022 06:08:20 09/21/19 23 09/20/2022 HEMOG LOBIN A1C hemoglobin A1C 5.8 % 0-5.6 high The Ameri can Diabe summer Assoc iatio n recom mends that a prima ry goal of thera py sepideh holly be a HBA1C of < 7% and that physi cians shoul d reeva luate the treat ment regim en in patie nts with HBA1C value s consi stent ly > 8%. <5.7% Brii l 5.7 - 6.4% Incre ased risk for diabe summer >=6.5 % Diagn ostic of diabe summer <7.0% Goal of thera py >8.0% Actio n sugge sted Not Available [facility] (Lab) [address] [facility], [place], [address], 09/21/2022 06:08:20 09/21/19 23 09/20/2022 VITAM IN D, 25-OH (TOTA L D2/D3 ) vitamin D, 25-hydroxy, total 48.4 NG/mL 30.0-1 00.0 Sugge stive of Defic iency : <20 ng/mL Sugge stive of Insuf ficie ncy: 20-29 ng/mL Sugge stive of Suffi cienc y: 30-10 0 ng/mL Sugge stive of Toxic ity: >150 ng/mL Not Available [facility] (Lab) [address] [facility], [place], [address], 09/21/2022 06:08:21 Result Notes None recorded. Procedures Surgical History Date Name Laterality Status Provider Name and Address Organization Details Recorded Time 08/08/19 23 ROBOTIC ASSISTED HYSTERECTOMY W/BILATERAL SALPINGO-OOPHORE CTOMY (SURG) completed Debo Hendrickson [facility] 08/08/2022 10:39:11 12/13/19 20 Date of Last Mammogram completed [facility] 06/25/2022 12:11:54 12/10/19 19 Date of Last Pap Smear completed [facility] 06/25/2022 12:11:54 05/26/[address] [facility] 06/25/2022 12:24:33 Endometrial Ablation completed Shirley Martinez [facility] 10/03/2022 11:06:09 Imaging Results None recorded. Procedure Notes None recorded. Medical Equipment None Reported. Allergies No known drug allergies Medications Name Sig Start Date Stop Date Status Note LastModified by Organization Details LastModified Time metformin 500 mg tablet TAKE 2 TABLETS BY MOUTH TWICE A DAY active Not Available Not Available No t Available meloxicam 15 mg tablet TAKE 1 TABLET BY MOUTH EVERY DAY active Not Available Not Available No t Available amlodipine 5 mg tablet TAKE 1 TABLET BY MOUTH EVERY DAY 09/20 completed Not Available Not Available Not Available terbinafine HCl 250 mg tablet TAKE 1 TABLET BY MOUTH EVERY DAY 09/20 completed Not Available Not Available Not Available glimepiride 4 mg tablet TAKE 1 TABLET BY MOUTH EVERYDAY AT BEDTIME 09/20 completed Not Available Not Available Not Available estradiol 2 mg tablet Take 1 tablet every day by oral route. 09/20 completed Not Available Not Available Not Available aliskiren 150 mg-amlodipi ne 5 mg tablet active Not Available Not Available Not Available alogliptin 12.5 mg-metformi n 500 mg tablet 10/03 completed Not Available Not Available Not Available Rybelsus 7 mg tablet TAKE 1 TABLET BY MOUTH EVERY DAY 09/20 completed Not Available Not Available Not Available ID NOW COVID-19 Test Kit TEST DIRECTED TODAY 09/20 completed Not Available Not Available Not Available Flowflex COVID-19 Antigen Home Test kit FOLLOW INSTRUCTI ONS INCLUDED WITH THE PACKAGE. 09/20 completed Not Available Not Available Not Available Vitals Date Recorded Body height Body mass index (BMI) Body weight Systolic blood pressure Diastolic blood pressure Provider Name and Address Organization Details Last Updated DateTime 08/01/2022 171.45 cm 32.1 kg/m2 63397.21 g 149 mm[Hg] 87 mm[Hg] Roxy Radha [facility] 12:29:47 Date Recorded Body height Body mass index (BMI) Body weight Systolic blood pressure Diastolic blood pressure Provider Name and Address Organization Details Last Updated DateTime 08/14/2022 171.45 cm 31.9 kg/m2 35081.62 g 136 mm[Hg] 78 mm[Hg] Roxy Garcia [facility] 3 14:22:32 Date Recorded Body height Body mass index (BMI) Body weight Systolic blood pressure Diastolic blood pressure Systolic blood pressure Diastolic blood pressure Provider Name and Address Organization Details Last Updated DateTime 3 171.45 cm 31.6 kg/m2 62240.4 4 g 153 mm[Hg] 107 mm[Hg] 140 mm[Hg] 80 mm[Hg] Jessenia Wilcox [facility] 3 12:35:51 Date Recorded Body height Body mass index (BMI) Body weight Systolic blood pressure Diastolic blood pressure Provider Name and Address Organization Details Last Updated DateTime 10/03/2022 171.45 cm 31.7 kg/m2 68091.87 g 138 mm[Hg] 80 mm[Hg] Shirley Martinez [facility] 3 11:27:26 Social History Question Answer Notes LastModified by Organizat ion Details LastModified Time What Is Your Level Of Alcohol Consumption? None Information not available 06/25/2022 How Many Years Have You Consumed Alcohol? 0 Information not available 06/25/2022 Are You Blind Or Do You Have Difficulty Seeing? No Information not available 06/25/2022 What Is Your Level Of Caffeine Consumption? Occasional Information not available 06/25/2022 How Much Tobacco Do You Chew? None [email or web address] Information not available 10/03/2022 In The 14 Days Before Symptom Onset, Have You Had Close Contact With A Laboratory-confir med COVID-19 While That Case Was Ill? No Information not available 06/25/2022 In The 14 Days Before Symptom Onset, Have You Had Close Contact With A Person Who Is Under Investigation For COVID-19 While That Person Was Ill? No Information not available 06/25/2022 Have You Been To An Area Known To Be High Risk For COVID-19? No Information not available 06/25/2022 Are You Deaf Or Do You Have Serious Difficulty Hearing? No Information not available 06/25/2022 What Type Of Diet Are You Following? REGULAR Information not available 06/25/2022 What Is The Highest Grade Or Level Of School You Have Completed Or The Highest Degree You Have Received? 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 Yes Information not available 06/25/2022 Do You Use Protection During Sex? No Information not available 06/25/2022 Do You Use Your Seat Belt Or Car Seat Routinely? Yes Information not available 06/25/2022 Do You Have Smoke And Carbon Monoxide Detectors In Your Home? Yes Information not available 06/25/2022 At What Age Did You Start Smoking Tobacco? 0 Information not available 06/25/2022 How Much Tobacco Do You Smoke? No Information not available 06/25/2022 Do You Feel Stressed (tense, Restless, Nervous, Or Anxious, Or Unable To Sleep At Night)? [id number] Information not available 06/25/2022 Do You Use Any Illicit Or Recreational Drugs? No Information not available 06/25/2022 Do You Use Sunscreen Routinely? No Information not available 06/25/2022 How Many Years Have You Smoked Tobacco? 0 Information not available 06/25/2022 Have You Used IV Drugs? No Information not available 06/25/2022 Sex: Unknown Functional Status Question Answer Note LastModified by Organizat ion Details LastModified Time Are you able to walk? [email or web address] Information not available 06/25/2022 What is your exercise level? Occasional Information not available 06/25/2022 Mental Status None recorded. Family History Relationship Description Onset Age of this Age Resolved Age Notes LastModified by Organization Details LastModified Time Maternal Uncle Diabetes mellitus Not available 2022 12:11:44 Maternal Aunt Diabetes mellitus Not available 2022 12:11:44 Mother Heart disease Not available 2022 12:11:44 Mother Diabetes mellitus [email or web address] Not available 2022 12:11:44 Sister Heart disease [email or web address] Not available 2022 12:11:44 Sister Diabetes mellitus Not available 2022 12:11:44 Medical History Condition Response Diabetes Y Gynecological History Statement/Question Response Date of Last Mammogram 12/13/2019 Date of LMP 05/25/2020 On BCP's at Conception? N N Was last menstrual period normal Y STIs/STDs N HPV Vaccine N Duration of Flow (days) 7 Current Control Method Ablation Age at First Child 24 Frequency of Cycle (Q days) 30 Sexually Active? Y Age of first menstrual cycle 15 Date of Last Pap Smear 12/09/2018 Sexual Problems? Y LMP Approximate N Obstetrics History GPAL:G 3 P 2 0 1 2 Type Value Full Term 2 Induced 1 Living 2 Total 3 Past Encounters Encounter ID Performer Location Encounter Start Date Encounter Closed Date Diagnosis/Indication Diagnosis SNOMED-CT Code Diagnosis ICD10 Code Diagnosis Note [id number] Julio Cesar Botello MD [place] [address] [address] 06/25/2022 11:46:28 06/26/2022 10:59:18 Dyspareunia [id number] N94.10 Pain in pelvis 01225450 R10.2 patient is a 57-year-ol d female with fibroid uterus. She has a painful fibroid uterus. She has pain with intercours e. She has pressure in her rectum. Patient has retention of stool possibly associated with these fibroids the project into the posterior cul-de-sac . Pain with intercours e affecting her relationsh ip with her significan t other. She has intense cramping pain. Patient would like definitive surgical treatment. Medical treatment will not help this patient. She is postmenopa usal. We agreed to perform laparoscop ic or robotic assisted hysterecto my. This will be with bilateral salpingo-o ophorectom y. I described the procedure the patient in detail. I described laparoscop ic and robotic approaches . We spent more than 40 minutes face-to-fa ce. More than 50% was counseling we made a decision to perform major surgery. [id number] Martha Wilkinson [place] [address],[place] [address] 06/25/2022 14:00:18 06/25/2022 15:10:22 Uterine leiomyoma [id number] D25.9 [id number] Julio Cesar Botello MD [place] [address],[place] [address] 08/01/2022 12:10:59 08/02/2022 10:38:46 Dyspareunia [id number] N94.10 Pain in pelvis [id number] R10.2 this patient is a 57-year-ol d female with dyspareuni a and pelvic pain. We agreed to perform total laparoscop ic hysterecto my bilateral salpingo-o ophorectom y. She understand s risks, benefits, and alternativ es. She has completed the informed consent process is ready to proceed. Uterine leiomyoma [id number] 05 D25.9 [id number] Julio Cesar Botello MD [place] [address],[place] [address] 08/14/2022 14:11:36 08/14/2022 17:03:47 Postoperative care [id number] Z48.89 this patient is a 57-year-ol d female presents for follow-up from hysterecto my. She is postop 1 week from a total laparoscop ic hysterecto my. She has no complaints . She is recovering normally. Her incisions are clean dry and intact. She had very little pain. She used no narcotic pain medication . [id number] ELIUD German [place] [address],[place] [address] 09/20/2022 12:12:37 09/20/2022 13:29:18 Obesity [id number] E66.9 Today a detailed history was obtained. We talked about her weight loss struggles and success.we discussed her diet. Recommende d eating breakfast daily, getting protein in the morning. We discussed protein intake, healthy eating choices, portion sizes, limiting sugary drinks (currently drinks sweet tea and lemonade). She is going to schedule with the care transition manager for consultDis cussed exercise recommenda tions - 150 minutes of exercise a week. We discussed walking, biking, swimming, jerome, yoga, pilates, resistance bands, strength exercises. Fasting labs orderedwe briefly discussed obesity medication options. She has type 2 diabetes and would be a candidate for injectable medication s-schedule with care transition manager- have fasting labs done-incor porate exercise-c heck insurance coverage-R TC for f/u in about 2 weeks Time spent in visit is a total of 40 mins with at least 50% of visit consisting of counseling and review of plan of care. Type 2 yogesh betes mellitus [id number] E11.9 [id number] ELIUD German [place] [address] [address] 10/03/2022 10:58:09 10/03/2022 13:13:52 Obesity [id number] E66.9 we reviewed her updated labs-hemog lobin A1C 5.8, total and LDL cholestero l elevateddi scussed exercise recommenda tions, start incorporat ing more intentiona l exercise, strength trainingre viewed healthy eating, protein intake - care transition manager appointmen t is scheduled we reviewed obesity medication options moving forwardrev iewed R/B/A/SE/c ost/contra indication s of each methodshe denies any personal or fam hx of thyroid cancer discussed ozempic (semagluti de) for management of obesity/ty pe 2 diabetesre viewed R/B/A/SE/c ontraindic ationsshe would like to consider her options and discuss this with her PCP - she will reach out to the office once she has decided if she would like to proceed with this. Time spent in visit is a total of 40 mins with at least 50% of visit consisting of counseling and review of plan of care. Type 2 yogesh betes mellitus [id number] E11.9 Health Concerns Section Related Observation LastModified by Organization Detai ls LastModified Time None Recorded Concern Status LastModified by Organization Details LastModified Time None Recorded Advance Directives Directive None Recorded Payers Encounter Date Sequence Insurance Name Policy Number Policy Pavon Covered Member ID Pavon Member ID Guarantor Name 08/01/2022 1 [facility] [employer] [facility] [id number] Fabio Chandler [id number] JOSE Chandler 08/14/2022 1 [facility] [employer] [id number] Fabio Chandler [id number] OI aHwa Chandler 09/20/2022 1 [facility] [id number] Fabio Chandler [id number] OI Hawa Chandler 10/03/2022 1 [facility] [id number] Fabio Chandler [id number] OI Hawa Chandler Notes Date Note Type Note Provider Name and Address Organization Details Recorded Time 08/01/2022 text/html this patient is a 57-year-old female with pelvic pain and dyspareunia. She has fibroid uterus. We agreed perform total laparoscopic hysterectomy bilateral salpingo-oophorectomy . The patient understands the procedure. The procedure was described to the patient in great detail. the patient also understands the risks. The risks were also explained in detail. She understands that injuries May occur during surgery. She understands these injuries can result in hospitalization, more surgery, and severe illness. She understands there is risk of hemorrhage and infection. Julio Cesar Botello MD [address], [place], [address], [facility] 08/01/2022 23:19:01 08/14/2022 text/html this patient is a 57-year-old female presents for follow-up from hysterectomy. She is postop 1 week from a total laparoscopic hysterectomy. She has no complaints. She is recovering normally. Her incisions are clean dry and intact. She had very little pain. She used no narcotic pain medication. Julio Cesar Botello MD [address], [place], [address], [facility] 08/14/2022 16:18:41 09/20/2022 text/html 57yopresents for weight management consultcurrently at her highest weight, 205 lbs BMI 31.6weight gain has been associated with restaurant shift supervisor work and medication changesshe normally eats breakfast, eats about 2 times per day, drinks water/sweet tea/lemonadeeats at night often due to restaurant shift supervisor workno current exercisesleeps 6-8 hours a night, no snoring, feels rested sometimes Past Medical Hx: High blood pressure, Type 2 DiabetesPast surgical hx : hysterectomy, 6 weeks agoMedications: metformin, amlodipine, meloxicamshe was previously on rybelsus, had success with this but it became too expensivenever smoker, no alcoholFam hx : obesity, HTN ELIUD German [address], [place], [address], [facility] 09/20/2022 13:07:24 10/03/2022 text/html 57yopresents for weight management f/ushe has an appointment with the care transition manager scheduledno current exercise yet, has trouble finding time with current work schedule (works long hours and night shifts) ELIUD German [address], [place], [address], [facility] 10/03/2022 12:28:27 OBGyn Episode Ob Episode Information Episode Created Date Number of Fetuses Patient Bloodtype Patient rh Status Prepregnancy Weight lbs Domestic Partner Domestic Partner Phone Father Name Ophthalmic Aide Status 06/25/19 23 1 CLOSED Fetus Data First Name Last Name Admitted to NICU Weight (g) Sex Living Outcome Pediatric Complications Fetus ID Race Codes Race Delivery Type , Induced [id number] Noel Calculation Initial Noel Date Initial Exam Date Initial Exam Provider Initial Ultrasound Date Last Menstrual Period Date Ultra Sound Weeks Gestation 0 Eighteen To Twenty Week Noel Update Ultra Sound Date Fundal Height At Umbil Quickening Date Ultra Sound Latest Weeks Gestation Final Noel Confirmed By Final Noel Confirmed Date Final Noel Date Ultra Sound Latest Days Gestation 0 0 Menstrual History Last Menstrual Date Menses Monthly On Bcp Conception Prior Menses Frequency Hcg Plus Date Menarche Onset Age Delivery Information Delivery Date Delivery Type Labor Anesthesia Weeks Gestation Incision Type Labor Labor Length Hrs Delivered By Post Complications Tubal Sterilization Discharge Date Comments 2 Discharge Information Feeding Method Contraceptive Method Maternal HG B and HCT Levels Ob Episode Information Episode Created Date Number of Fetuses Patient Bloodtype Patient rh Status Prepregnancy Weight lbs Domestic Partner Domestic Partner Phone Father Name Ophthalmic Aide Status 06/25/19 23 1 CLOSED Fetus Data First Name Last Name Admitted to NICU Weight (g) Sex Living Outcome Pediatric Complications Fetus ID Race Codes Race Delivery Type 2721.55 2 M Prematur [place] [id number] Vaginal Delivery Noel Calculation Initial Noel Date Initial Exam Date Initial Exam Provider Initial Ultrasound Date Last Menstrual Period Date Ultra Sound Weeks Gestation 0 Eighteen To Twenty Week Noel Update Ultra Sound Date Fundal Height At Umbil Quickening Date Ultra Sound Latest Weeks Gestation Final Noel Confirmed By Final Noel Confirmed Date Final Noel Date Ultra Sound Latest Days Gestation 0 0 Menstrual History Last Menstrual Date Menses Monthly On Bcp Conception Prior Menses Frequency Hcg Plus Date Menarche Onset Age Delivery Information Delivery Date Delivery Type Labor Anesthesia Weeks Gestation Incision Type Labor Labor Length Hrs Delivered By Post Complications Tubal Sterilization Discharge Date Comments 1 35 Radha a n Discharge Information Feeding Method Contraceptive Method Maternal HG B and HCT Levels Ob Episode Information Episode Created Date Number of Fetuses Patient Bloodtype Patient rh Status Prepregnancy Weight lbs Domestic Partner Domestic Partner Phone Father Name Ophthalmic Aide Status 06/25/19 23 1 CLOSED Fetus Data First Name Last Name Admitted to NICU Weight (g) Sex Living Outcome Pediatric Complications Fetus ID Race Codes Race Delivery Type 3231.84 3 F Prematur e [id number] Vaginal Delivery Noel Calculation Initial Noel Date Initial Exam Date Initial Exam Provider Initial Ultrasound Date Last Menstrual Period Date Ultra Sound Weeks Gestation 0 Eighteen To Twenty Week Noel Update Ultra Sound Date Fundal Height At Umbil Quickening Date Ultra Sound Latest Weeks Gestation Final Noel Confirmed By Final Noel Confirmed Date Final Noel Date Ultra Sound Latest Days Gestation 0 0 Menstrual History Last Menstrual Date Menses Monthly On Bcp Conception Prior Menses Frequency Hcg Plus Date Menarche Onset Age Delivery Information Delivery Date Delivery Type Labor Anesthesia Weeks Gestation Incision Type Labor Labor Length Hrs Delivered By Post Complications Tubal Sterilization Discharge Date Comments 9 35 Emma Discharge Information Feeding Method Contraceptive Method Maternal HG B and HCT Levels
--- OUTSIDE RECORDS SUMMARY | 2024-08-26 11:11 | XMS_ITS ---
Author Organization Unknown Medications Medication Instructions Effective Dates (start - stop) Status metformin hydrochloride 500 MG Oral Tablet - Completed meloxicam 15 MG Oral Tablet [id number] :00:00Z - Completed amlodipine 5 MG Oral Tablet [id number] :00:00Z - Completed amlodipine 5 MG Oral Tablet [id number] :00:00Z - Completed meloxicam 15 MG Oral Tablet [id number] :00:00Z - Completed meloxicam 15 MG Oral Tablet [id number] :00:00Z - Completed diclofenac sodium 75 MG Concepción yed Release Oral Tablet - Completed amlodipine 5 MG Oral Tablet [id number] :00:00Z - Completed terbinafine 250 MG Oral Tablet 2023-12-11 T00:00:00Z - Completed amlodipine 5 MG Oral Tablet [id number] :00:00Z - Completed metformin hydrochloride 500 MG Oral Tablet - Completed metformin hydrochloride 500 MG Oral Tablet - Completed metformin hydrochloride 500 MG Oral Tablet - Completed Patient Care team information Name Category Status Period Participants - - Proposed period not known -
--- OUTSIDE RECORDS SUMMARY | 2024-08-26 11:11 | XMS_ITS | Clinical Summary ---
Author Organization [facility] [employer] Address [address] [place] [address] Care Team Providers Care Report Writer Name Role Phone Diaz Farfan MD Primary Care Provider [phone] Source Comments [facility] [employer],non-owned Affiliates and Associated Physician Practices is amultiple site organization consisting of ambulatory clinics and hospital sitesin [place], [place], [place] and [place]. This disclosure is being madepursuant to the Care Everywhere program and may not contain all information available regarding this patient. Last updated 18.[facility] [employer] Allergies No known active allergies Medications * Be aware that medications may not be up to date on this document. Alwaysverify current medications with the patient. Medication Sig Dispensed Refills Start Date End Date Status [place]-3 Fatty Acids (FISH OIL) 1200 MG CAPS Take by mouth. Active B-12 PO Take by mouth. Active IRON PO Take by mouth. Active meloxicam (MOBIC) 15 MG tablet Take 1 tablet by mouth once daily as needed with food 30 tablet 1 10/15/2017 Active Active Problems Problem Noted Date Diagnosed Date HT (hammer toe) 01/17/2010 Contracted, tendon 01/17/2010 Plantar fasciitis 12/20/2009 Family History Medical History Relation Name Comments Diabetes - Type 1 Brother Renal Disease Brother Schizophrenia Brother Cancer - Lung Maternal Aunt Diabetes - Type 2 Maternal Aunt Hypertension Maternal Aunt CAD (Coronary Artery Disease) Mother Diabetes - Type 2 Mother Hyperlipidemia Mother Hypertension Mother Diabetes - Type 2 Paternal Uncle Hypertension Paternal Uncle Diabetes - Type 2 Sister Hyperlipidemia Sister Hypertension Sister Relation Name Status Comments Brother Maternal Aunt Mother Paternal Uncle Sister Social History Tobacco Use Types Packs/Day Years Used Date Smoking Tobacco: Never Smokeless Tobacco: Never Alcohol Use Standard Drinks/Week Comments No 0 (1 standard drink = 0.6 oz pur e alcohol) Sex and Gender Information Value Date Recorded Sex Assigned at Not on file Gender Identity Not on file Sexual Orientation Not on file Last Filed Vital Signs Vital Sign Reading Time Taken Comments Blood Pressure 120/82 10/15/2017 1:10 PM CDT Pulse - - Temperature 36.8 C (98.2 F) 01/17/2010 8:06 AM CDT Respiratory Rate 18 10/15/2017 1:10 PM CDT Oxygen Saturation - - Inhaled Oxygen Concentration - - Weight 93 kg (205 lb) 10/15/2017 1:10 PM CDT Height 170.2 cm (5' 7 ) 10/15/2017 1:10 PM CDT Body Mass Index 32.11 10/15/2017 1:10 PM CDT Plan of Treatment Health Maintenance Due Date Last Done Comments COLOGUARD (AGES 45-75) - COL ON CA SCREENING 1967 COLON MONITORING 1967 COLONOSCOPY - COLON CA SCREENING 1967 CT COLONOGRAPHY - COLON CA SCREENING 1967 Colorectal Cancer Screening 1967 FIT - COLON CA SCREENING 1967 FLEX SIG - COLON CA SCREENING 1967 LIPID TESTING 1967 PAP SMEAR 1967 HIV SCREENING 1982 HEPATITIS C SCREENING 03/20/1985 DTAP/TDAP/TD VACCINES (1 - Tdap) 1986 HEPATITIS B VACCINE (1 of 3 - 19+ 3-dose series) 1986 MAMMOGRAM 10/26/2010 10/26/2008 PNEUMOCOCCAL VACCINE 50+ (1 of 1 - PCV) 2017 ZOSTER VACCINE (1 of 2) 2017 SCREENING FOR DIABETES 10/15/2017 COVID-19 VACCINE ( - 2023-2 5 season) 2024 DEPRESSION SCREENING 05/26/2024 INFLUENZA VACCINE (Season Ended) 2025 HIB VACCINE Aged Out No longer eligi ble based on patient's age to complete this topic HPV VACCINE Aged Out No longer eligi ble based on patient's age to complete this topic MENINGOCOCCAL (Group B) VACC INE SHARED DECISION-MAKING Aged Out No longer eligibl e based on patient's age to complete this topic MENINGOCOCCAL GROUPS A/C/Y/W VACCINE Aged Out No longer eligible b ased on patient's age to complete this topic PNEUMOCOCCAL VACCINE Aged Out No long er eligible based on patient's age to complete this topic Procedures Procedure Name Priority Date/Time Associated Diagnosis Comments MAMMO BILAT SCREENING Today 10/26/2008 10:50 AM CDT Other Screening Mammogram from Last 3 Months or Most Recently Relevant to Health Maintenance Results * MAMMO SCREENING DIGITAL IMAGE BILAT (10/26/2008 10:50 AM CDT) Anatomical Region Laterality Modality Breast Bilateral Other 10/26/2008 10:5 0 AM CDT Narrative 10/26/2008 1:42 PM CDT EXAMINATION- Digital screening mammogram on 10/26/2008. OUTREACH CLINICIAN- RT Jason, TREY PRIOR- This is a baseline study FINDINGS- Computer assisted detection was utilized. The tissue density is dense. There is no discrete abnormality ASSESSMENT- BIRADS Category 1- Negative mammogram. RECOMMENDATION- Follow up in one year. [facility] staff will contact and schedule patients with BIRADS categories 0, 4, and 5. Reading Radiologist- OUMOU HERNÁNDEZ M.D. Releasing Radiologist- OUMOU HERNÁNDEZ M.D. Released Date Time- 10/26/08 1342 Hotel Valet Attendant- AMADOR Shahid ADM- ATT- REF- CON- PCP- SCP- Procedure Note Oumou Hernández - 10/28/2008 EXAMINATION- Digital screening mammogram on 10/26/2008. OUTREACH CLINICIAN- RT Jason, TREY PRIOR- This is a baseline study FINDINGS- Computer assisted detection was utilized. The tissue density is dense. There is no discrete abnormality ASSESSMENT- BIRADS Category 1- Negative mammogram. RECOMMENDATION- Follow up in one year. [facility] staff will contact and schedule patients with BIRADS categories 0, 4, and 5. Reading Ayesha HERNÁNDEZ M.D. Releasing Ayesha HERNÁNDEZ M.D. Released Date Time- 10/26/08 1342 Hotel Valet Attendant- AMADOR Shahid ADM- ATT- REF- CON- PCP- SCP- Provider Unknown MAMMO ORDERABLES from Last 3 Months or Most Recently Relevant to Health Maintenance Care Teams Report Writer Relationship Specialty Start Date End Date Diaz Farfan MD [address] [place] [address] PCP - General 08/26/22
== END 2024-08-26 10:23 | disposition home or self-care (01) ==
PROVIDERS: PCP Family Medicine; Visit Provider Nurse Practitioner
DX: Z12.31 Encounter for screening mammogram for malignant neoplasm of breast (principal); R92.8 Other abnormal and inconclusive findings on diagnostic imaging of breast
CPT/HCPCS: 77063; 77067

== ENCOUNTER 2024-09-03 12:13 | Outpatient (CLI) | payer OTHER, SELFPAY ==
--- NOTE | ~2024-09-03 | MMUS_ITS ---
EXAMINATION: MM diagnostic petty RT w bhupendra, US breast RT limited HISTORY: Follow-up right breast asymmetry TECHNIQUE: Additional 3-D tomosynthesis images of the right breast were performed and synthetic 2-D i mages were generated. CAD analysis was submitted and interpreted. High resolution Limited right breas t ultrasound was performed. COMPARISON: Comparison to multiple prior studies sequentially, with oldest reviewed study dated 02/06. BREAST PARENCHYMAL COMPOSITION: Not dense: There are scattered areas of fibroglandular density. FINDINGS: MAMMOGRAPHIC FINDINGS: There is a low-density asymmetry in the central aspect of the right breast, middle third. There are n o suspicious calcifications or architectural distortion. ULTRASOUND: Limited right breast ultrasound: There are small intramammary lymph nodes at 8:00, 5 cm from the nipp le measuring 7 mm and at 8:00, 8 cm from the nipple measuring 5 mm. No suspicious masses to suggest m alignancy. IMPRESSION: 1. No evidence for malignancy in the right breast. Benign findings. 2. Routine yearly screening mammogram and regular clinical breast examination are recommended. BI-RADS Category 2: Benign finding(s). Reviewed, dictated and finalized at location A. IMPRESSION: 1. No evidence for malignancy in the right breast. Benign findings. 2. Routine yearly screening mammogram and regular clinical breast examination a re recommended. BI-RADS Category 2: Benign finding(s).
--- OUTSIDE RECORDS SUMMARY | 2024-09-03 12:16 | XMS_ITS | Clinical Summary ---
Author Organization [facility] [employer] Address [address] [place] [address] Care Team Providers Care Tray Casting Machine Operator Name Role Phone Diaz Farfan MD Primary Care Provider [phone] Source Comments [facility] [employer],non-owned Affiliates and Associated Physician Practices is amultiple site organization consisting of ambulatory clinics and hospital sitesin [place], [place], [place] and [place]. This disclosure is being madepursuant to the Care Everywhere program and may not contain all information available regarding this patient. Last updated 18.[facility] [employer] Allergies No known active allergies Medications * Be aware that medications may not be up to date on this document. Alwaysverify current medications with the patient. Medication Sig Dispensed Refills Start Date End Date Status [place]-3 Fatty Acids (FISH OIL) 1200 MG CAPS [...] CDT EXAMINATION- Digital screening mammogram on 10/26/2008. PROVIDER ENGAGEMENT EXECUTIVE- RT Jason, TREY PRIOR- This is a baseline study FINDINGS- Computer assisted detection was utilized. The tissue density is dense. There is no discrete abnormality ASSESSMENT- BIRADS Category 1- Negative mammogram. RECOMMENDATION- Follow up in one year. [facility] staff will contact and schedule patients with BIRADS categories 0, 4, and 5. Reading Radiologist- OUMOU HERNÁNDEZ M.D. Releasing Radiologist- OUMOU HERNÁNDEZ M.D. Released Date Time- 10/26/08 1342 Rigger Apprentice- AMADOR Shhaid ADM- ATT- REF- CON- PCP- SCP- Procedure Note Oumou Hernández - 10/28/2008 EXAMINATION- Digital screening mammogram on 10/26/2008. PROVIDER ENGAGEMENT EXECUTIVE- RT Jason, TREY PRIOR- This is a baseline study FINDINGS- Computer assisted detection was utilized. The tissue density is dense. There is no discrete abnormality ASSESSMENT- BIRADS Category 1- Negative mammogram. RECOMMENDATION- Follow up in one year. [facility] staff will contact and schedule patients with BIRADS categories 0, 4, and 5. Reading Ayesha HERNÁNDEZ M.D. Releasing Ayesha HERNÁNDEZ M.D. Released Date Time- 10/26/08 1342 Rigger Apprentice- AMADOR Shahid ADM- ATT- REF- CON- PCP- SCP- Provider Unknown MAMMO ORDERABLES from Last 3 Months or Most Recently Relevant to Health Maintenance Care Teams Tray Casting Machine Operator Relationship Specialty Start Date End Date Diaz Farfan MD [address] [place] [address] PCP - General 08/26/22
--- OUTSIDE RECORDS SUMMARY | 2024-09-03 12:16 | XMS_ITS | Data Portability ---
Author Organization [facility] [place] [facility] Address [address] [place] [address] Care Team Providers Care Family Dinner Service Specialist Name Role Phone ODESSA DUDLEY Referring Provider ODESSA DUDLEY Primary Care Provider Assessment No assessment recorded. Plan of Treatment Reminders Order Date Submit Date Provider Last Modified By Organization Details Last Modified Time Details Appointments None recorded. Lab HbA1c (hemoglob in A1c), blood 023 023 [facility] (Lab), [address], [place], [address], 3 06:08:21 lipid panel, blood 023 023 [facility] (Lab), [address], [place], [address], 3 06:08:18 vitamin D, 25-hydrox y, total, serum 023 023 [facility] (Lab), [address], [place], [address], 3 06:08:21 CMP, serum or plasma 023 023 [facility] (Lab), [address], [place], [address], 3 06:08:19 CBC w/ auto diff 023 023 [facility] (Lab), [address], [place], [address], 3 06:08:17 TSH, serum or plasma 023 023 [facility] (Lab), [address] [place], [address], 3 06:08:20 Referral None recorded. Procedures None recorded. Surgeries None recorded. Imaging None recorded. Medication Orders None recorded. Patient TargetsNo targets recorded. Patient InstructionsNo instructions recorded. Reason for Referral None Reported. Results Created Date Observation Date Name Description Value Unit Range Abnormal Flag Note LastModifiedBy Organization Detail LastModifiedTime 09/21/1909/20/2022 CBC W/DIF F WBC 6.3 10'3/ uL 3.6-10 .2 Not Available [facility] (Lab) [address], [place], [address], 09/21/2022 06:08:16 09/21/19 23 09/20/2022 CBC W/DIF F RBC 5.07 10'6/ uL (based on docume nted legal sex) 4.10-5 .30 Not Available [facility] (Lab) [address], [place], [address], 09/21/2022 06:08:16 09/21/19 23 09/20/2022 CBC W/DIF F HGB 13.8 g/dL (based on docume nted legal sex) 11.9-1 5.8 Not Available [facility] (Lab) [address], [place], [address], 09/21/2022 06:08:16 09/21/19 23 09/20/2022 CBC W/DIF F HCT 45.3 % (based on docume nted legal sex) 37.4-4 8.3 Not Available [facility] (Lab) [address], [place], [address], 09/21/2022 06:08:16 09/21/19 23 09/20/2022 CBC W/DIF F MCV 89.3 fL 82.0-9 9.0 Not Available [facility] (Lab) [address], [place], [address], 09/21/2022 06:08:16 09/21/19 23 09/20/2022 CBC W/DIF F MCH 27.2 pg 27.0-3 3.0 Not Available [facility] (Lab) [address], [place], [address], 09/21/2022 06:08:16 09/21/19 23 09/20/2022 CBC W/DIF F MCHC 30.5 g/dL 32.0-3 6.0 low Not Available [facility] (Lab) [address], [place], [address], 09/21/2022 06:08:16 09/21/19 23 09/20/2022 CBC W/DIF F RDW 14.2 % 11.0-1 5.0 Not Available [facility] (Lab) [address], [place], [address], 09/21/2022 06:08:16 09/21/19 23 09/20/2022 CBC W/DIF F plt 345 10'3/ uL 150-45 0 Not Available [facility] (Lab) [address], [place], [address], 09/21/2022 06:08:16 09/21/19 23 09/20/2022 CBC W/DIF F MPV 10.4 fL 9.8-12 .7 Not Available [facility] (Lab) [address], [place], [address], 09/21/2022 06:08:16 09/21/19 23 09/20/2022 CBC W/DIF F NRBC's 0.0 % 0 Not Available [facility] (Lab) [address], [place], [address], 09/21/2022 06:08:16 09/21/19 23 09/20/2022 CBC W/DIF F absolute NRBCs 0.0 10'3/ uL 0 Not Available [facility] (Lab) [address], [place], [address], 09/21/2022 06:08:16 09/21/19 23 09/20/2022 CBC W/DIF F neutrophils 48.0 % 37.0-7 2.0 Not Available [facility] (Lab) [address], [place], [address], 09/21/2022 06:08:16 09/21/19 23 09/20/2022 CBC W/DIF F lymphocytes 41.6 % 16.0-4 8.0 Not Available [facility] (Lab) [address], [place], [address], 09/21/2022 06:08:16 09/21/19 23 09/20/2022 CBC W/DIF F monocytes 6.7 % 4.0-14 .0 Not Available [facility] (Lab) [address], [place], [address], 09/21/2022 06:08:16 09/21/19 23 09/20/2022 CBC W/DIF F eosinophils 2.4 % 0.0-9. 0 Not Available [facility] (Lab) [address], [place], [address], 09/21/2022 06:08:16 09/21/19 23 09/20/2022 CBC W/DIF F basophils 1.0 % 0.0-2. 0 Not Available [facility] (Lab) [address], [place], [address], 09/21/2022 06:08:16 09/21/19 23 09/20/2022 CBC W/DIF F immature granulocytes 0.3 % no define d refere nce range Not Available [facility] (Lab) [address], [place], [address], 09/21/2022 06:08:16 09/21/19 23 09/20/2022 CBC W/DIF F absolute neutrophils 3.0 10'3/ uL 1.1-6. 0 Not Available [facility] (Lab) [address] [facility], [place], [address], 09/21/2022 06:08:16 09/21/19 23 09/20/2022 CBC W/DIF F absolute lymphocytes 2.6 10'3/ uL 0.7-3. 4 Not Available [facility] (Lab) [address] [facility], [place], [address], 09/21/2022 06:08:16 09/21/19 23 09/20/2022 CBC W/DIF F absolute monocytes 0.4 10'3/ uL 0.3-1. 0 Not Available [facility] (Lab) [address] [facility], [place], [address], 09/21/2022 06:08:16 09/21/19 23 09/20/2022 CBC W/DIF F absolute eosinophils 0.2 10'3/ uL 0.0-0. 6 Not Available [facility] (Lab) [address] [facility], [place], [address], 09/21/2022 06:08:16 09/21/19 23 09/20/2022 CBC W/DIF F absolute basophils 0.1 10'3/ uL 0.0-0. 1 Not Available [facility] (Lab) [address] [facility], [place], [address], 09/21/2022 06:08:16 09/21/19 23 09/20/2022 CBC W/DIF [...] ts are expec gia. Not Available [facility] (Lab) [address] [facility], [place], [address], 09/21/2022 06:08:16 09/21/19 23 09/20/2022 LIPID PANEL ,AMA (LDL- CALC) total cholesterol 223 mg/dL 0-199 high Not Available [facility] (Lab) [address] [facility], [place], [address], 09/21/2022 06:08:18 09/21/19 23 09/20/2022 LIPID PANEL ,AMA (LDL- CALC) triglyceride s 85 mg/dL 0.00-1 50.00 NCEP Refer ence Value s for Trigl yceri rudy: Brii l: <150 mg/dL Borde rline High: 150 - 199 mg/dL High: 200 - 499 mg/dL Very High: >/= 500 mg/dL Not Available [facility] (Lab) [address] [place], [address], 09/21/2022 06:08:18 09/21/1909/20/2022 LIPID PANEL ,AMA (LDL- CALC) HDL cholesterol 77 mg/dL >40 Not Available [facility] (Lab) [address] [place], [address], 09/21/2022 06:08:18 09/21/19 23 09/20/2022 LIPID PANEL [...] mg/dL , HDL <40 mg/dL Not Available [facility] (Lab) [address] [place], [address], 09/21/2022 06:08:18 09/21/1909/20/2022 LIPID PANEL ,AMA (LDL- CALC) non-HDL cholesterol 146 mg/dL no refere nce range A reaso nable goal for non-H DL kamala stero l is one that is 30 mg/dL highe r than the LDL kamala stero l goal. Not Available [facility] (Lab) [address], [place], [address], 09/21/2022 06:08:18 09/21/1909/20/2022 LIPID PANEL ,AMA (LDL- CALC) chol/HDL ratio 2.9 . 0.0-5. 0 On September 17, 2022, [facility] labor atori rubens cooley ed the equat [...] Ashley soriano, Charly Perez, Rafa Koehler , [facility] wicho BRajeev العلي, Jesse Llanes, Jesse villa, Ed Hardwick [facility] , and Foster Ocampo . 2013. Comp ariso n of a Novel Metho d vs the Fried yamileth Equat ion for Estim ating Low-D ensit y Lipop rotei n Kamala stero l Level s from the Stand marla Lipid Profi le. SHWETA: The Journ al of the Ameri can Medic al Assoc iatio n 310 (19): 2060- . - Clif camejo V, Elizabeth Ta, Los camejo A, Mary Ellen Gallego, Jose Carlos silverio R, Arnel Silverio, Ronen sanchez RS, Terrence SR, Ashley n SS. Fast ing Versu s Nonfa sting and Low-D ensit y Lipop rotei n Kamala stero l Accur acy. Circu latio n. 2017May 27;137 (1):1 0-19. Not Available [facility] (Lab) [address] [facility], [place], [address], 09/21/2022 06:08:18 09/21/19 23 09/20/2022 CMP(C OMPRE HENSI VE METAB OLIC PANEL ) sodium 141 mmol/ L 133-14 6 Not Available [facility] (Lab) [address] [facility], [place], [address], 09/21/2022 06:08:19 09/21/19 23 09/20/2022 CMP(C OMPRE HENSI VE METAB OLIC PANEL ) potassium 4.0 mmol/ L 3.5-5. 1 Not Available [facility] (Lab) [address] [facility], [place], [address], 09/21/2022 06:08:19 09/21/19 23 09/20/2022 CMP(C OMPRE HENSI VE METAB OLIC PANEL ) chloride 104 mmol/ L 98-107 Not Available [facility] (Lab) [address] [facility], [place], [address], 09/21/2022 06:08:19 09/21/19 23 09/20/2022 CMP(C OMPRE HENSI VE METAB OLIC PANEL ) carbon dioxide 29 mmol/ L 21-31 Not Available [facility] (Lab) [address] [facility], [place], [address], 09/21/2022 06:08:19 09/21/19 23 09/20/2022 CMP(C OMPRE HENSI VE METAB OLIC PANEL ) anion gap 8 mmol/ L 4-13 Not Available [facility] (Lab) [address] [place], [address], 09/21/2022 06:08:19 09/21/19 23 09/20/2022 CMP(C OMPRE HENSI VE METAB OLIC PANEL ) blood urea nitrogen 11 mg/dL 7-25 Not Available [facility] (Lab) [address], [place], [address], 09/21/2022 06:08:19 09/21/19 23 09/20/2022 CMP(C OMPRE HENSI VE METAB OLIC PANEL ) creatinine 0.65 mg/dL 0.60-1 .30 Not Available [facility] (Lab) [address], [place], [address], 09/21/2022 06:08:19 09/21/19 23 09/20/2022 CMP(C OMPRE HENSI VE METAB OLIC PANEL ) egfrcr (CKD-epi 2020) >90 mL/mi n/1.7 3_m2 >=60 Not Available [facility] (Lab) [address], [place], [address], 09/21/2022 06:08:19 09/21/19 23 09/20/2022 CMP(C OMPRE HENSI VE METAB OLIC PANEL ) calcium 9.5 mg/dL 8.3-10 .5 Not Available [facility] (Lab) [address], [place], [address], 09/21/2022 06:08:19 09/21/19 23 09/20/2022 CMP(C OMPRE HENSI VE METAB OLIC PANEL ) glucose 102 mg/dL 70-100 high Not Available [facility] (Lab) [address], [place], [address], 09/21/2022 06:08:19 09/21/19 23 09/20/2022 CMP(C OMPRE HENSI VE METAB OLIC PANEL ) protein, total 6.8 g/dL 6.4-8. 3 Not Available [facility] (Lab) [address], [place], [address], 09/21/2022 06:08:19 09/21/19 23 09/20/2022 CMP(C OMPRE HENSI VE METAB OLIC PANEL ) albumin 4.2 g/dL 3.5-5. 0 Not Available [facility] (Lab) [address], [place], [address], 09/21/2022 06:08:19 09/21/19 23 09/20/2022 CMP(C OMPRE HENSI VE METAB OLIC PANEL ) ALT 12 units /L 9-43 Not Available [facility] (Lab) [address], [place], [address], 09/21/2022 06:08:19 09/21/19 23 09/20/2022 CMP(C OMPRE HENSI VE METAB OLIC PANEL ) alkaline phosphatase 67 units /L 34-104 Not Available [facility] (Lab) [address], [place], [address], 09/21/2022 06:08:19 09/21/19 23 09/20/2022 CMP(C OMPRE HENSI VE METAB OLIC PANEL ) AST 13 units /L 13-39 Not Available [facility] (Lab) [address], [place], [address], 09/21/2022 06:08:19 09/21/19 23 09/20/2022 CMP(C OMPRE HENSI VE METAB OLIC PANEL ) bilirubin, total 0.3 mg/dL 0.2-1. 2 Not Available [facility] (Lab) [address], [place], [address], 09/21/2022 06:08:19 09/21/19 23 09/20/2022 TSH, REFLE X FREE T4 TSH 2.34 uIU/m L 0.30-5 .33 Not Available [facility] (Lab) [address], [place], [address], 09/21/2022 06:08:20 09/21/19 23 09/20/2022 HEMOG LOBIN [...] >8.0% Actio n sugge sted Not Available [facility] (Lab) [address] [facility], [place], [address], 09/21/2022 06:08:20 09/21/19 23 09/20/2022 VITAM IN D, 25-OH (TOTA L D2/D3 ) vitamin D, 25-hydroxy, total 48.4 NG/mL 30.0-1 00.0 Sugge stive of Defic iency : <20 ng/mL Sugge stive of Insuf ficie ncy: 20-29 ng/mL Sugge stive of Suffi cienc y: 30-10 0 ng/mL Sugge stive of Toxic ity: >150 ng/mL Not Available [facility] (Lab) [address] [facility], [place], [address], 09/21/2022 06:08:21 Result Notes None recorded. Procedures Surgical History Date Name Laterality Status Provider Name and Address Organization Details Recorded Time 08/08/19 23 ROBOTIC ASSISTED HYSTERECTOMY W/BILATERAL SALPINGO-OOPHORE CTOMY (SURG) completed Debo Hendrickson [facility] 08/08/2022 10:39:11 12/13/19 20 Date of Last Mammogram completed [facility] 06/25/2022 12:11:54 12/10/19 19 Date of Last Pap Smear completed [facility] 06/25/2022 12:11:54 05/26/[address] [facility] 06/25/2022 12:24:33 Endometrial Ablation completed Shirley Martinez [facility] 10/03/2022 11:06:09 Imaging Results None [...] Updated DateTime 08/01/2022 171.45 cm 32.1 kg/m2 20558.21 g 149 mm[Hg] 87 mm[Hg] Roxy Radha [facility] 12:29:47 Date Recorded Body height Body mass index (BMI) Body weight Systolic blood pressure Diastolic blood pressure Provider Name and Address Organization Details Last Updated DateTime 08/14/2022 171.45 cm 31.9 kg/m2 88921.62 g 136 mm[Hg] 78 mm[Hg] Roxy Garcia [facility] 3 14:22:32 Date Recorded Body height Body mass index (BMI) Body weight Systolic blood pressure Diastolic blood pressure Systolic blood pressure Diastolic blood pressure Provider Name and Address Organization Details Last Updated DateTime 3 171.45 cm 31.6 kg/m2 11326.4 4 g 153 mm[Hg] 107 mm[Hg] 140 mm[Hg] 80 mm[Hg] Jessenia Wilcox [facility] 3 12:35:51 Date Recorded Body height Body mass index (BMI) Body weight Systolic blood pressure Diastolic blood pressure Provider Name and Address Organization Details Last Updated DateTime 10/03/2022 171.45 cm 31.7 kg/m2 12905.87 g 138 mm[Hg] 80 mm[Hg] Shirley Martinez [facility] 3 11:27:26 Social History Question [...] Or The Highest Degree You Have Received? 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 [id number] Information not available 06/25/2022 Do You Use [...] SNOMED-CT Code Diagnosis ICD10 Code Diagnosis Note [id number] Julio Cesar Botello MD [place] [facility] [address] [address] 06/25/2022 11:46:28 06/26/2022 10:59:18 Dyspareunia 62772374 N94.10 Pain in pelvis 09767684 R10.2 patient is a 57-year-ol d female [...] made a decision to perform major surgery. [id number] Martha Wilkinson [place] [facility] [address],[place] [address] 06/25/2022 14:00:18 06/25/2022 15:10:22 Uterine leiomyoma 11682347 D25.9 [id number] Julio Cesar Botello MD [place] [facility] [address],[place] [address] 08/01/2022 12:10:59 08/02/2022 10:38:46 Dyspareunia 28503617 N94.10 Pain in pelvis 37213179 R10.2 this patient is a 57-year-ol d female with dyspareuni a and pelvic pain. We agreed to perform total laparoscop ic hysterecto my bilateral salpingo-o ophorectom y. She understand s risks, benefits, and alternativ es. She has completed the informed consent process is ready to proceed. Uterine leiomyoma 141760 05 D25.9 [id number] Julio Cesar Botello MD [place] [facility] [address],[place] [address] 08/14/2022 14:11:36 08/14/2022 17:03:47 Postoperative care [id number] Z48.89 this patient is a 57-year-ol d female presents for follow-up from hysterecto my. She is postop 1 week from a total laparoscop ic hysterecto my. She has no complaints . She is recovering normally. Her incisions are clean dry and intact. She had very little pain. She used no narcotic pain medication . [id number] ELIUD German [place] [facility] [address],[place] [address] 09/20/2022 12:12:37 09/20/2022 13:29:18 Obesity 020153733 E66.9 Today a detailed history was obtained. We talked about her weight loss struggles and success.we discussed her diet. Recommende d eating breakfast daily, getting protein in the morning. We discussed protein intake, healthy eating choices, portion sizes, limiting sugary drinks (currently drinks sweet tea and lemonade). She is going to schedule with the commercial loan specialist for consultDis cussed exercise recommenda tions - 150 minutes of exercise a week. We discussed walking, biking, swimming, jerome, yoga, pilates, resistance bands, strength exercises. Fasting labs orderedwe briefly discussed obesity medication options. She has type 2 diabetes and would be a candidate for injectable medication s-schedule with commercial loan specialist- have fasting labs done-incor porate exercise-c heck insurance coverage-R TC for f/u in about 2 weeks Time spent in visit is a total of 40 mins with at least 50% of visit consisting of counseling and review of plan of care. Type 2 yogesh betes mellitus 39660934 E11.9 [id number] ELIUD German [place] [facility] [address],[place] [address] 10/03/2022 10:58:09 10/03/2022 13:13:52 Obesity 622928957 E66.9 we reviewed her updated labs-hemog lobin A1C 5.8, total and LDL cholestero l elevateddi scussed exercise recommenda tions, start incorporat ing more intentiona l exercise, strength trainingre viewed healthy eating, protein intake - commercial loan specialist appointmen t is scheduled we reviewed obesity [...] of care. Type 2 yogesh betes mellitus [id number] E11.9 Health Concerns Section Related Observation LastModified by Organization Detai ls LastModified Time None Recorded Concern Status LastModified by Organization Details LastModified Time None Recorded Advance Directives Directive None Recorded Payers Encounter Date Sequence Insurance Name Policy Number Policy Pavon Covered Member ID Pavon Member ID Guarantor Name 08/01/2022 1 [facility] [employer] [id number] Fabio Chandler [id number] JOSE Chandler 08/14/2022 1 [facility] [employer] [id number] Fabio Chandler [id number] OI Hawa Chandler 09/20/2022 1 [facility] [id number] Fabio Chandler [id number] OI Hawa Chandler 10/03/2022 1 [facility] [id number] Fabio Chandler [id number] OI Hawa Chandler Notes Date Note Type [...] Julio Cesar Botello MD [address], [place], [address], [facility] 08/01/2022 23:19:01 08/14/2022 text/html this patient is a 57-year-old female presents for follow-up from hysterectomy. She is postop 1 week from a total laparoscopic hysterectomy. She has no complaints. She is recovering normally. Her incisions are clean dry and intact. She had very little pain. She used no narcotic pain medication. Julio Cesar Botello MD [address], [place], [address], [facility] 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 09/20/2022 13:07:24 10/03/2022 text/html 57yopresents for weight management f/ushe has an appointment with the commercial loan specialist scheduledno current exercise yet, has trouble finding time with current work schedule (works long hours and night shifts) ELIUD German [address], [place], [address], [facility] 10/03/2022 12:28:27 OBGyn Episode Ob Episode Information Episode Created Date Number of Fetuses Patient Bloodtype Patient rh Status Prepregnancy Weight lbs Domestic Partner Domestic Partner Phone Father Name Raw Silk Grader Status 06/25/19 23 1 CLOSED Fetus Data First Name Last Name Admitted to NICU Weight (g) Sex Living Outcome Pediatric Complications Fetus ID Race Codes Race Delivery Type , Induced [id number] Noel Calculation Initial Noel Date Initial Exam [...] Domestic Partner Domestic Partner Phone Father Name Raw Silk Grader Status 06/25/19 23 1 CLOSED Fetus Data First Name Last Name Admitted to NICU Weight (g) Sex Living Outcome Pediatric Complications Fetus ID Race Codes Race Delivery Type 2721.55 2 M Prematur e [id number] Vaginal Delivery Noel Calculation Initial Noel Date [...] Domestic Partner Domestic Partner Phone Father Name Raw Silk Grader Status 06/25/19 23 1 CLOSED Fetus Data First Name Last Name Admitted to NICU Weight (g) Sex Living Outcome Pediatric Complications Fetus ID Race Codes Race Delivery Type 3231.84 3 F Prematur e [id number] Vaginal Delivery Noel Calculation Initial Noel Date [...]
--- OUTSIDE RECORDS SUMMARY | 2024-09-03 12:16 | XMS_ITS ---
Author Organization Unknown Medications Medication Instructions Effective Dates (start - stop) Status metformin hydrochloride 500 MG Oral Tablet - Completed meloxicam 15 MG Oral Tablet [id number] :00:00Z - Completed amlodipine 5 MG Oral Tablet [id number] :00:00Z - Completed amlodipine 5 MG Oral Tablet [id number] :00:00Z - Completed meloxicam 15 MG Oral Tablet [id number] :00:00Z - Completed meloxicam 15 MG Oral Tablet [id number] :00:00Z - Completed diclofenac sodium 75 MG Concepción yed Release Oral Tablet - Completed amlodipine 5 MG Oral Tablet [id number] :00:00Z - Completed terbinafine 250 MG Oral Tablet 2023-12-11 T00:00:00Z - Completed amlodipine 5 MG Oral Tablet [id number] :00:00Z - Completed metformin hydrochloride 500 MG Oral Tablet - Completed metformin hydrochloride 500 MG Oral Tablet - Completed metformin hydrochloride 500 MG Oral Tablet - Completed Patient Care team information Name Category Status Period Participants - - Proposed period not known -
== END 2024-09-03 12:14 | disposition home or self-care (01) ==
PROVIDERS: PCP Family Medicine; Visit Provider Nurse Practitioner
DX: R92.8 Other abnormal and inconclusive findings on diagnostic imaging of breast (principal)
CPT/HCPCS: 76642; 77061; 77065; G0279